=== PATIENT | female | born 1990 | race Caucasian/White ===

== ENCOUNTER → 2016-10-04 | Outpatient (CLI) | payer OTHER ==
[~2016-10-04] MED LIST: CENTRUM COMPLE1 EACH PO; ENDOCET 5-3251 EACH PO; MOTRIN800 MG PO; OXYCODONE H5 MG/5 ML PO; PERCOCET 5/31 TABLET PO; ROXICET 5-325500 ML PO; TYLENOL REGULA325 MG PO
== END | disposition home or self-care (01) ==
LOC: NUC 07:48
DX: R10.11 Right upper quadrant pain (principal)
CPT/HCPCS: 78227; A9537; J2805